=== PATIENT | male | born 1980 | race Caucasian/White ===

== ENCOUNTER 2021-02-02 10:19 | Inpatient (IN) | payer BC ==
[~2021-02-02] VITALS: Ht 177.8 cm; Wt 90.7 kg
[2021-02-02 11:25] LABS: HEMOGLOBIN 15.1 gm/dl (14.0-17.5); RED BLOOD COUNT 4.64 M/UL (4.20-5.50); WHITE BLOOD COUNT 9.4 K/UL (4.5-11.0)
[2021-02-02 11:44] LABS: BUN/CREATININE RATIO 15 (0-10)
[2021-02-03 07:40] LABS: HEMOGLOBIN 12.8 gm/dl (14.0-17.5); RED BLOOD COUNT 4.09 M/UL (4.20-5.50); WHITE BLOOD COUNT 5.6 K/UL (4.5-11.0)
[2021-02-03 07:56] LABS: BUN/CREATININE RATIO 12 (0-10)
[2021-02-04 08:02] LABS: HEMOGLOBIN 12.8 gm/dl (14.0-17.5); RED BLOOD COUNT 4.1 M/UL (4.20-5.50); WHITE BLOOD COUNT 5.6 K/UL (4.5-11.0)
[2021-02-04 08:26] LABS: BUN/CREATININE RATIO 13 (0-10)
[2021-02-05 06:47] LABS: HEMOGLOBIN 13.5 gm/dl (14.0-17.5); RED BLOOD COUNT 4.23 M/UL (4.20-5.50); WHITE BLOOD COUNT 4.5 K/UL (4.5-11.0)
[2021-02-05 07:25] LABS: BUN/CREATININE RATIO 7 (0-10)
[2021-02-05] MEDS ORDERED: METRONIDAZOLE250 MG PO (10:42)
== END 2021-02-05 16:56 | disposition home or self-care (01) | DRG 389 ==
LOC: ER1 10:19 → M/S 15:22 → CDU 15:22 → M/S 16:36
PROVIDERS: Emergency Medicine; Internal Medicine; Physician Assistant; Physician Assistant Medical; ADMIT Internal Medicine
DX: K56.7 Ileus, unspecified (principal); K50.90 Crohn's disease, unspecified, without complications; K52.9 Noninfective gastroenteritis and colitis, unspecified; Z20.822 Contact with and (suspected) exposure to COVID-19; Z90.49 Acquired absence of other specified parts of digestive tract; Z83.79 Family history of other diseases of the digestive system
CPT/HCPCS: 36415; 80048; 80053; 83605; 83690; 83735; 85025; 85027; 96374; 99285; C9113; J0696; J2270; J2405; J7030; Q9967; U0002